=== PATIENT | male | born 1985 | race Caucasian/White ===

== ENCOUNTER 2022-03-30 17:06 | Emergency (ER) | payer OTHER, SELFPAY ==
--- NOTE | 2022-03-30 17:09 | ED.URI ---
HPI - URI/Sore Throat General Chief Complaint: Upper Respiratory Infection Stated Complaint: COUGH/DRAINAGE/EAR/FEVER Time Seen by Provider: 03/30/22 17:09 Source: patient and RN notes reviewed History of Present Illness HPI Narrative: Patient is a 37-year-old male who presents to urgent care with complaints of bilateral earache, cough, drainage for approximately 1 week. Patient denies any recent fever, nausea, vomiting or exposure. Patient has been taking Zyrtec, Robitussin, DayQuil and Tylenol. No other acute complaints. No acute distress noted. Patient aware of the plan of care. Some parts of this dictation were generated by voice recognition software and may contain typographical and/or grammatical inaccuracies. Related Data Allergies Allergy/AdvReac Type Severity Reaction Status Date / Time hep vaccine Allergy Unknown unk Uncoded 07/19/17 12:47 Review of Systems Review of Systems: CONSTITUTIONAL: Denies fever, chills, or sweats. EYES: Denies visual changes, redness, or discharge. ENT: Reports of congestion, postnasal drainage, otalgia CARDIOVASCULAR: Denies chest pain, palpitations, or edema. RESPIRATORY: Reports cough without dyspnea GASTROINTESTINAL: Denies abdominal pain, nausea, vomiting, or diarrhea. GENITOURINARY: Denies dysuria or hematuria. SKIN: Denies rash or itching. MUSCULOSKELETAL: Denies back pain, joint pain, or myalgia. NEUROLOGIC: Denies headache, numbness, or weakness. All other systems reviewed are negative, except as documented in HPI. PMFSH Comments At the time of my signature, I reviewed and agree with the nursing past medical, surgical, social, and family history. There is no relevant family history pertinent to the patient complaint. Exam Narrative: GENERAL: This is a well-nourished, well-developed patient, in no apparent distress. HEAD: normocephalic, atraumatic. EYES: PERRL. Sclera clear/white. Vision is grossly intact. EARS: External ears normal, auditory canals clear and without drainage, slight rupture on the right TM with moderate effusion and erythema. Left TM normal without perforation. Hearing grossly intact. NOSE: External nose normal with no obvious nasal discharge; bilateral erythema nares with clear to yellow rhinorrhea THROAT: Mucous membranes moist, posterior pharynx clear. Moderate postnasal drainage NECK: Neck supple, non-tender without lymphadenopathy CARDIOVASCULAR: Regular rate and rhythm without murmurs, gallops, or rubs. RESPIRATORY: Clear to auscultation. Breath sounds equal bilaterally. No wheezes, rales, or rhonchi. SKIN: warm, intact with no suspicious lesions or rash, good texture and turgor. NEURO: awake, alert, and oriented to person, place and time. There were no obvious focal neurologic abnormalities. EXTREMITIES: No clubbing, cyanosis, or edema. Course Course Level of Care: Express Care Visit Vital Signs Vital signs: Vital Signs Temperature 98.3 F 03/30/22 17:15 Pulse Rate 86 03/30/22 17:15 Respiratory Rate 16 03/30/22 17:15 Blood Pressure 141/94 H 03/30/22 17:15 Pulse Oximetry 99 03/30/22 17:15 Temperature 98.3 F 03/30/22 17:15 Pulse Rate 86 03/30/22 17:15 Respiratory Rate 16 03/30/22 17:15 Blood Pressure 141/94 H 03/30/22 17:15 Pulse Oximetry 99 03/30/22 17:15 Reviewed- Patient is informed that they may have pre-hypertension or hypertension based on a blood pressure reading in the department. I recommend the patient call the primary care provider listed on their discharge instructions or a physician of their choice this week to arrange follow-up for further evaluation of possible pre-hypertension or hypertension. MDM - URI/Sore Throat MDM Narrative Medical decision making narrative: Advised patient complete the oral steroid regimen as prescribed. Complete the antibiotic regimen as prescribed. Continue Flonase nasal spray and a daily antihistamine such as Claritin or Zyrtec. Use a humidifier at night. Use Tylenol
[2022-03-30 17:15] VITALS: BP 141/94; PULSE 86; RESP 16; TEMP 36.8; O2SAT 99
== END 2022-03-30 17:48 | disposition home or self-care (01) ==
PROVIDERS: Emergency Provider Nurse Practitioner Family
DX: J32.9 Chronic sinusitis, unspecified (principal); H66.91 Otitis media, unspecified, right ear
CPT/HCPCS: 99203; G0463

== ENCOUNTER 2022-08-17 08:20 | Emergency (ER) | payer OTHER, SELFPAY ==
[2022-08-17 08:29] VITALS: BP 145/90; PULSE 98; RESP 16; TEMP 36.6; O2SAT 97
[2022-08-17 08:30] VITALS: BP 145/90; PULSE 98; RESP 16; TEMP 36.6; O2SAT 97
--- NOTE | 2022-08-17 08:41 | ED.EAR ---
HPI - Ear Problem General Chief complaint: Upper Respiratory Infection Stated complaint: ears clogged/pain Time Seen by Provider: 08/17/22 08:39 Source: patient and RN notes reviewed Mode of arrival: ambulatory Limitations: no limitations History of Present Illness HPI Narrative: 37-year-old male presents with concern for bilateral ear pain. Reports sinus congestion, drainage ear pain started yesterday. Reports history of problems with his ears. MD Complaint: ear pain Related Data Allergies Allergy/AdvReac Type Severity Reaction Status Date / Time hep vaccine Allergy Unknown unk Uncoded 08/17/22 08:28 Review of Systems Review of Systems: CONSTITUTIONAL: Denies malaise, chills, sweats, or fever. EYES: Denies visual changes, redness, or discharge. ENT: Reports rhinorrhea, congestion. Denies sinus pain, and sore throat. Reports bilateral ear pain CARDIOVASCULAR: Denies chest pain, palpitations, or edema. RESPIRATORY: Denies cough. Denies dyspnea. GASTROINTESTINAL: Denies abdominal pain, nausea, vomiting, diarrhea SKIN: Denies rash or itching. MUSCULOSKELETAL: Denies myalgia. NEUROLOGIC: Denies headache. All systems reviewed & are unremarkable except as noted in HPI and below PMFSH Comments At time of signature, agree with nursing past medical, surgical, social and family history. There is no relevant family history pertinent to the presenting complaint Exam Narrative: GENERAL: Well-appearing, well-nourished, and in no acute distress. HEAD: Normocephalic EYES: PERRLA, conjunctivae clear ENT: Nares clear, turbinates edematous, clear discharge. Mucous membranes moist. Left TM pearly ren with dull light reflex, right TM erythematous and dull; no tragal tenderness. Oropharynx not erythematous without lesions. Tonsils not enlarged and without exudate, no drooling, no hoarseness, no trismus, uvula midline. NECK: Supple. No lymphadenopathy CHEST: Clear to auscultation, breath sounds equal. No wheezing, rhonchi, rales, or stridor. No respiratory distress, speaks in full sentences. HEART: Regular rate and rhythm. No murmur heard. SKIN: Warm, dry, no rash. NEURO: Alert and oriented x3. PSYCH: Normal mood and affect Course Course Emergency Course: Patient is aware of diagnosis, understands and agrees to treatment plan. Anticipatory guidance given. Patient agrees to follow-up as directed and is aware of reasons to seek care at the emergency department. Portions of this record may have been created with voice recognition software Level of Care: Express Care Visit Vital Signs Vital signs: Vital Signs Temperature 97.8 F 08/17/22 08:29 Pulse Rate 98 08/17/22 08:29 Respiratory Rate 16 08/17/22 08:29 Blood Pressure 145/90 H 08/17/22 08:29 Pulse Oximetry 97 08/17/22 08:29 Oxygen Delivery Room Air 08/17/22 08:29 Temperature 97.8 F 08/17/22 08:30 Pulse Rate 98 08/17/22 08:30 Respiratory Rate 16 08/17/22 08:30 Blood Pressure 145/90 H 08/17/22 08:30 Pulse Oximetry 97 08/17/22 08:30 Oxygen Delivery Room Air 08/17/22 08:30 Reviewed. Medical Decision Making MDM Narrative Medical decision making narrative: Differential diagnosis considered: Lewis virus, strep pharyngitis, allergic rhinitis, upper respiratory tract infection, sinusitis, rhinosinusitis, nasopharyngitis. viral pharyngitis, otitis media, otitis externa, otitis effusion, cerumen impaction, foreign body. Exam findings show no acute concerns or changes; patient is non-toxic appearing and is in no distress. Patient is appropriate for outpatient treatment and follow-up. Vital Signs Vital Signs: Vital Signs Temperature 97.8 F 08/17/22 08:29 Pulse Rate 98 08/17/22 08:29 Respiratory Rate 16 08/17/22 08:29 Blood Pressure 145/90 H 08/17/22 08:29 Pulse Oximetry 97 08/17/22 08:29 Oxygen Delivery Room Air 08/17/22 08:29 Temperature 97.8 F 08/17/22 08:30 Pulse Rate 98 08/17/22 08:30 Respiratory Rate 16 0
== END 2022-08-17 08:53 | disposition home or self-care (01) ==
PROVIDERS: Emergency Provider Nurse Practitioner
DX: H66.91 Otitis media, unspecified, right ear (principal)
CPT/HCPCS: 99213; G0463